=== PATIENT | female | born 1995 | race American Indian/Alaskan Native ===

== ENCOUNTER 2017-05-01 18:59 | Emergency (ER) | payer OTHER, BC ==
[2017-05-01 18:59] VITALS: BMI 52.4
[2017-05-01 19:11] VITALS: RESP 20; TEMP 98.3
[2017-05-01] MEDS ORDERED: Sodium Chloride 0.9% 1,000 ML IV ONE (19:53)
[2017-05-01 20:15] LABS: BASO % 0.7 % (0.0-2.0); EOS % 0.7 % (0.0-4.0); HEMOGLOBIN 11.6 g/dL (11.0-16.0); LYMPH # 1.3 K/uL (1.0-4.3); LYMPH % 19.4 % (20.0-40.0); MEAN CELL VOLUME 86.5 fL (81.0-99.0); MEAN CORPUSCULAR HEMOGLOBIN 29.3 pg (27.0-31.0); MEAN CORPUSCULAR HGB CONC 33.9 g/dL (33.0-37.0); MEAN PLATELET VOLUME 8.2 fL (7.2-11.7); MONO # 0.4 K/uL (0.0-0.8); MONO % 5.8 % (0.0-10.0); NEUT # 4.9 K/uL (1.8-7.0); NEUT % 73.4 % (50.0-75.0); RBC 3.94 Mil/uL (3.80-5.20); RED CELL DISTRIBUTION WIDTH 13.8 % (11.5-14.5); WHITE BLOOD COUNT 6.7 K/uL (4.8-10.8)
[2017-05-01] MEDS ORDERED: Sodium Chloride 0.9% 1,000 ML ONE (20:28)
[2017-05-01 20:35] LABS: ALBUMIN 3.8 g/dL (3.5-5.0); ALT/SGPT 19 U/L (9-52); AST/SGOT 25 U/L (14-36); BLOOD UREA NITROGEN 10 mg/dL (7-17); CALCIUM 8.3 mg/dl (8.6-10.4); GFR AFRICAN-AMERICAN > 60; GFR NON-AFRICAN AMERICAN > 60
[2017-05-01 21:09] VITALS: BP 148/80; PULSE 95
[2017-05-01 21:13] VITALS: O2SAT 98
[2017-05-01] MEDS ORDERED: Enoxaparin 40 mg Syringe SC STA (21:13)
--- NOTE | 2017-05-01 21:13 | C.PDOC ---
History Of Present Illness 21 yo female came in c/o right leg pain since last night. 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 Pt was evaluated by Gabrielle LAZAR at the time, XR preformed and found to be negative. Pt notes pain persists, it feels "tight". Took Naproxen this morning for the pain. No change in sensation. No swelling. (-) travel (-) SOB (+) Time Seen by Provider: 05/01/17 19:05 Chief Complaint (Nursing): Lower Extremity Problem/Injury History Per: Patient History/Exam Limitations: no limitations Onset/Duration Of Symptoms: Hrs (230 am ) Current Symptoms Are (Timing): Still Present Past Medical History Vital Signs: Last Vital Signs Temp 98.3 F 05/01/17 21:09 Pulse 95 H 05/01/17 21:09 Resp 20 05/01/17 21:09 BP 148/80 05/01/17 21:09 Pulse Ox 98 05/01/17 21:16 - Medical History PMH: Asthma Family History: States: Unknown Family Hx - Social History Hx Alcohol Use: No Hx Substance Use: No Review Of Systems Except As Marked, All Systems Reviewed And Found Negative. Constitutional: Negative for: Fever Neurological: Negative for: Weakness, Numbness Physical Exam - Physical Exam Appears: Well, Non-toxic, No Acute Distress, Other (obese) Skin: Normal Color, Warm, Dry Head: Atraumatic, Normacephalic Eye(s): bilateral: Normal Inspection, EOMI Nose: Normal Oral Mucosa: Moist Neck: Normal, Normal ROM, Supple Chest: Symmetrical Cardiovascular: Rhythm Regular Respiratory: Normal Breath Sounds Back: Normal Inspection Extremity: Normal ROM, Tenderness (Posterior proximal lower leg), No Pedal Edema , Calf Tenderness, No Swelling Pulses: Left Dorsalis Pedis: Normal, Right Dorsalis Pedis: Normal Neurological/Psych: Oriented x3, Normal Motor, Normal Sensation ED Course And Treatment - Laboratory Results Result Diagrams: 05/01/17 20:12 05/01/17 20:12 O2 Sat by Pulse Oximetry: 98 Progress Note: Pt has lower leg pain, is on control and HR is in 120s. Vascular study unable to be preformed. DDimer ordered and Lovenox. Instructed to return tomorrow for doppler. Pt denies SOB, chest pain, or dyspnea. pulse ox WNL. Pt was offered crutches, notes she has it at home. Jakob wrap is on the knee. Disposition - Disposition Disposition: HOME/ ROUTINE Disposition Time: 21:15 Condition: STABLE Additional Instructions: Return tomorrow for vascular study on your leg. Instructions: Leg Sprain (ED) Forms: [facility] (Marshallese), Work Excuse - Clinical Impression Clinical Impression: Leg sprain
[2017-05-01] MEDS ORDERED: Enoxaparin 30 mg Syringe ONE (21:37)
[2017-05-01] MEDS ORDERED: Enoxaparin 100 mg Syringe ONE (21:37)
== END 2017-05-01 21:51 | disposition home or self-care (01) ==
LOC: C.ER 18:59
DX: S83.91XA Sprain of unspecified site of right knee, initial encounter (principal); W19.XXXA Unspecified fall, initial encounter
CPT/HCPCS: 80053; 85025; 85378; 96360; 96372; 99283; J1650; J7040

== ENCOUNTER 2017-05-02 11:14 | Emergency (ER) | payer OTHER, BC ==
[2017-05-02 11:22] VITALS: BP 140/92; PULSE 100; RESP 20; TEMP 97.9; O2SAT 99
--- NOTE | 2017-05-02 11:52 | C.PDOC ---
History Of Present Illness 21 yo female came in c/o right leg pain since yesterday at 2am s/p her "leg giving out " and she fell on it. She was evaluated at [facility] at the time and negative XR and instructed to come in today for Doppler. Notes "its not pain, its "tight". No change in sensation. No swelling. Time Seen by Provider: 05/02/17 11:15 Chief Complaint (Nursing): Lower Extremity Problem/Injury History Per: Patient History/Exam Limitations: no limitations Onset/Duration Of Symptoms: Days (yesterday) Current Symptoms Are (Timing): Still Present Past Medical History Vital Signs: Last Vital Signs Temp 97.9 F 05/02/17 11:21 Pulse 100 H 05/02/17 11:21 Resp 20 05/02/17 11:21 BP 140/92 H 05/02/17 11:21 Pulse Ox 99 05/02/17 12:12 - Medical History PMH: Asthma Family History: States: Unknown Family Hx - Social History Hx Alcohol Use: No Hx Substance Use: No Review Of Systems Except As Marked, All Systems Reviewed And Found Negative. Musculoskeletal: Positive for: Leg Pain Physical Exam - Physical Exam Appears: Well, Non-toxic, No Acute Distress Skin: Normal Color, Warm, Dry Head: Atraumatic, Normacephalic Eye(s): bilateral: Normal Inspection, EOMI Nose: Normal Oral Mucosa: Moist Neck: Normal, Normal ROM, Supple Chest: Symmetrical Respiratory: No Accessory Muscle Use Back: Normal Inspection Extremity: Normal ROM, Tenderness (tenderness to the back of the right leg), No Swelling Pulses: Left Dorsalis Pedis: Normal, Right Dorsalis Pedis: Normal Neurological/Psych: Oriented x3, Normal Speech, Normal Motor, Normal Sensation ED Course And Treatment O2 Sat by Pulse Oximetry: 99 Progress Note: Vascular Dopppler NEgative as read by information tech. Pt was instructed RICE and follow up with ortho in 1-2 days. Disposition - Disposition Disposition: HOME/ ROUTINE Disposition Time: 11:56 Condition: STABLE Additional Instructions: Rest, ice and elevate the area. Follow up with your PMD in1-2 days. Prescriptions: Cyclobenzaprine [Cyclobenzaprine HCl] 10 mg PO TID #20 tab Instructions: Leg Sprain (ED) Forms: [facility] (Sri Lankan) - Clinical Impression Clinical Impression: Leg sprain
--- NOTE | 2017-05-04 09:46 | VASCLAB ---
PROCEDURE: Right Lower Extremity Venous Duplex Exam. HISTORY: Pain PRIORS: None. TECHNIQUE: Right common femoral, femoral, popliteal and posterior tibial, peroneal and great saphenous veins were evaluated. Flow was assessed with color Doppler, compressibility, assessment of phasic flow and augmentation response. Report prepared by ALONSO De La Cruz FINDINGS: RIGHT: 1. Common Femoral Vein: 1.1. Compressibility - Fully compressible: Thrombus - None: Flow - Phasic: Augmentation -Normal: Reflux - None. 2. Femoral Vein: 2.1. Compressibility - Fully compressible: Thrombus - None: Flow - Phasic: Augmentation -Normal: Reflux - None. 3. Popliteal Vein: 3.1. Compressibility - Fully compressible: Thrombus - None: Flow - Phasic: Augmentation -Normal: Reflux - None. 4. Posterior Tibial Vein: 4.1. Compressibility - Fully compressible: Thrombus - None: Flow - Phasic: Augmentation -Normal: Reflux - None. 5. Peroneal Vein: 5.1. Compressibility - Fully compressible: Thrombus - None: Flow - Phasic: Augmentation -Normal: Reflux - None. 6. Great Saphenous Vein: 6.1. Compressibility - Fully compressible: Thrombus -None: Flow - Phasic: Augmentation - Normal: Reflux - None. OTHER FINDINGS: IMPRESSION: No evidence of deep or superficial vein thrombosis of the right lower extremity with excellent venous flow. Normal valve function noted of the right side. Normal venous flow noted in the left common femoral vein.
== END 2017-05-02 12:06 | disposition home or self-care (01) ==
LOC: C.ER 11:14
DX: T14.8XXD Other injury of unspecified body region, subsequent encounter (principal); W18.30XD Fall on same level, unspecified, subsequent encounter

== ENCOUNTER 2017-05-12 16:29 | Emergency (ER) | payer OTHER, BC ==
[2017-05-12 16:31] VITALS: BP 139/77; PULSE 93; RESP 20; TEMP 98.5; O2SAT 98
--- NOTE | 2017-05-12 16:52 | C.PDOC ---
History Of Present Illness 21-year-old female, presents to the emergency department with complaints knee pain for the past 1.5 weeks since she fell from the ambulance and struck knee. Patient was seen at that time and had a negative x-ray. She is taking Tramadol, Flexeril, and anti-inflammatory medication but pain persists. States that today , it gave out while at work and fell on it. Denies numbness/weakness, nausea/ vomiting, or any other associated symptoms. No other complaints at this time. Time Seen by Provider: 05/12/17 16:38 Chief Complaint (Nursing): Lower Extremity Problem/Injury History Per: Patient History/Exam Limitations: no limitations Past Medical History Reviewed: Historical Data, Nursing Documentation, Vital Signs Vital Signs: Last Vital Signs Temp 98.5 F 05/12/17 16:30 Pulse 93 H 05/12/17 16:30 Resp 20 05/12/17 16:30 BP 139/77 05/12/17 16:30 Pulse Ox 98 05/12/17 17:36 - Medical History PMH: Asthma Family History: States: No Known Family Hx - Social History Hx Alcohol Use: No Hx Substance Use: No Review Of Systems Constitutional: Negative for: Fever Musculoskeletal: Positive for: Other (Knee pain) Neurological: Negative for: Weakness, Numbness Physical Exam - Physical Exam Appears: Non-toxic, No Acute Distress Skin: Warm, Dry, No Rash Extremity: Normal ROM, Tenderness (Right knee, interiorly), Capillary Refill (< 2 seconds), No Deformity, No Swelling (no redness) Pulses: Left Dorsalis Pedis: Normal, Right Dorsalis Pedis: Normal ED Course And Treatment O2 Sat by Pulse Oximetry: 98 Medical Decision Making Medical Decision Making: right knee xr- no acute fracture Disposition - Disposition Referrals: Adrianna Painting MD [Staff Provider] - Disposition: HOME/ ROUTINE Disposition Time: 17:35 Condition: STABLE Additional Instructions: Please follow up with the orthopedic doctor. Return to the ER for any worsening symptoms or for any other concerns. Forms: General Discharge Instructions, [facility] (Latvian), Work Excuse - Clinical Impression Clinical Impression: Knee contusion - Scribe Statement The provider has reviewed the documentation as recorded by the Scribe (Garret Lomeli) All medical record entries made by the Scribe were at my direction and personally dictated by me. I have reviewed the chart and agree that the record accurately reflects my personal performance of the history, physical exam, medical decision making, and the department course for this patient. I have also personally directed, reviewed, and agree with the discharge instructions and disposition.
--- NOTE | 2017-05-13 08:50 | RAD ---
PROCEDURE: Right Knee Radiographs. HISTORY: fall pain COMPARISON: None. FINDINGS: BONES: No acute fracture. JOINTS: Unremarkable. JOINT EFFUSION: None. OTHER FINDINGS: None. IMPRESSION: No demonstrated fracture or dislocation.
== END 2017-05-12 17:48 | disposition home or self-care (01) ==
LOC: C.ER 16:29
DX: S80.01XA Contusion of right knee, initial encounter (principal); W18.30XA Fall on same level, unspecified, initial encounter; Y92.89 Other specified places as the place of occurrence of the external cause; Y99.8 Other external cause status
CPT/HCPCS: 73562; 96372; 99283; J1885

== ENCOUNTER 2018-01-08 19:08 | Emergency (ER) | payer OTHER, BC ==
[2018-01-08 19:22] VITALS: BP 130/84; PULSE 107; RESP 20; TEMP 98.8
[2018-01-08 20:44] VITALS: O2SAT 99
--- NOTE | 2018-01-08 20:57 | C.PDOC ---
History Of Present Illness 22-year-old female, presents to the emergency department with complaints of headache, sore throat, cough with yellow sputum and nasal congestion ongoing for the past three days. Patient denies fever, nausea/vomiting, or any other associated symptoms. No other complaints at this time. Time Seen by Provider: 01/08/18 20:34 Chief Complaint (Nursing): Cough, Cold, Congestion History Per: Patient History/Exam Limitations: no limitations Onset/Duration Of Symptoms: Days Current Symptoms Are (Timing): Still Present Past Medical History Reviewed: Historical Data, Nursing Documentation, Vital Signs Vital Signs: Last Vital Signs Temp 98.8 F 01/08/18 19:15 Pulse 107 H 01/08/18 19:15 Resp 20 01/08/18 19:15 BP 130/84 01/08/18 19:15 Pulse Ox 99 01/08/18 21:21 - Medical History PMH: Anemia, Asthma Family History: States: No Known Family Hx - Social History Hx Alcohol Use: No Hx Substance Use: No - Immunization History Hx Tetanus Toxoid Vaccination: Yes Hx Influenza Vaccination: Yes (2017) Hx Pneumococcal Vaccination: No Review Of Systems Constitutional: Negative for: Fever ENT: Positive for: Nose Discharge, Throat Pain Respiratory: Positive for: Cough, Sputum Neurological: Positive for: Headache Physical Exam - Physical Exam Appears: Non-toxic, No Acute Distress Skin: Warm, Dry, No Rash Head: Atraumatic, Normacephalic Eye(s): bilateral: Normal Inspection, PERRL, EOMI Ear(s): Bilateral: Normal Nose: Normal Oral Mucosa: Moist Lips: Normal Appearing Throat: Erythema, Exudate, No Drooling, No Mass Neck: Normal ROM, Supple Cardiovascular: Rhythm Regular, No Murmur Respiratory: Normal Breath Sounds, No Accessory Muscle Use Extremity: Normal ROM, No Deformity Neurological/Psych: Oriented x3, Normal Speech, Normal Cognition ED Course And Treatment O2 Sat by Pulse Oximetry: 99 Pulse Ox Interpretation: Normal (RA) Medical Decision Making Medical Decision Making: Plan: * Motrin, Amoxicillin * Reassess and Disposition Disposition - Disposition Referrals: Kevon Jorge MD [Medical Doctor] - Disposition: HOME/ ROUTINE Disposition Time: 20:54 Condition: STABLE Additional Instructions: Follow up within 1-2 days. Return to ED if feel worse. Prescriptions: Amoxicillin 500 mg PO Q8 #30 tab Brompheniramine/Pseudoephed/Dm [Bromfed Dm Cough 118 ml] 10 ml PO Q4 #300 ml Fluticasone Nasal [Flonase] 1 spr NS BID #1 spr Ibuprofen [Motrin Tab] 600 mg PO Q8 #30 tab Instructions: Sore Throat in Adults, Upper Respiratory Infection (ED) Forms: [facility] (Uzbek), Work Excuse - Clinical Impression Clinical Impression: Pharyngitis, Upper respiratory infection - Scribe Statement The provider has reviewed the documentation as recorded by the Scribe (Garret Katz) All medical record entries made by the Scribe were at my direction and personally dictated by me. I have reviewed the chart and agree that the record accurately reflects my personal performance of the history, physical exam, medical decision making, and the department course for this patient. I have also personally directed, reviewed, and agree with the discharge instructions and disposition.
== END 2018-01-08 21:05 | disposition home or self-care (01) ==
LOC: C.ER 19:08
DX: J02.9 Acute pharyngitis, unspecified (principal)

== ENCOUNTER 2018-05-17 19:53 | Emergency (ER) | payer BC ==
[2018-05-17] MEDS ORDERED: Sodium Chloride 0.9% 1,000 ML IV ONE (20:44)
[2018-05-17 21:06] LABS: BASO % 0.3 % (0.0-2.0); EOS # 0.1 K/uL (0.0-0.7); EOS % 0.5 % (0.0-4.0); HEMOGLOBIN 11.5 g/dL (11.0-16.0); LYMPH # 2.7 K/uL (1.0-4.3); MEAN CELL VOLUME 90.5 fL (81.0-99.0); MEAN CORPUSCULAR HEMOGLOBIN 29.4 pg (27.0-31.0); MEAN CORPUSCULAR HGB CONC 32.4 g/dL (33.0-37.0); MEAN PLATELET VOLUME 9.6 fL (7.2-11.7); MONO # 0.7 K/uL (0.0-0.8); MONO % 7.3 % (0.0-10.0); NEUT # 6.7 K/uL (1.8-7.0); NEUT % 65.9 % (50.0-75.0); RBC 3.91 Mil/uL (3.80-5.20); RED CELL DISTRIBUTION WIDTH 14.9 % (11.5-14.5); WHITE BLOOD COUNT 10.2 K/uL (4.8-10.8)
[2018-05-17 21:25] LABS: ALB/GLOB RATIO 1.4 (1.0-2.1); ALBUMIN 4.4 g/dL (3.5-5.0); ALT/SGPT 32 U/L (9-52); AST/SGOT 29 U/L (14-36); BLOOD UREA NITROGEN 6 mg/dL (7-17); CALCIUM 8.9 mg/dl (8.6-10.4); GFR NON-AFRICAN AMERICAN > 60; LIPASE 71 U/L (23-300)
[2018-05-17 21:31] LABS: SQUAMOUS EPITHIAL 29 /hpf (0-5); URINE BACTERIA RARE (<OCC); URINE BILIRUBIN 1+ (NEGATIVE); URINE BLOOD NEGATIVE (NEGATIVE); URINE CLARITY Hazy (Clear); URINE COLOR Amber (YELLOW); URINE GLUCOSE (UA) NORMAL (Normal); URINE LEUKOCYTE ESTERASE TRACE Leu/uL (Negative); URINE PROTEIN 1+ mg/dL (NEGATIVE)
--- NOTE | 2018-05-17 21:58 | C.PDOC ---
History Of Present Illness 22 year old female, whose past medical history includes gastric sleeve in February 2018, presents to the ED for evaluation of nausea and vomiting which began 3 days ago. Patient reports vomiting after eating, headache and dizziness. She denies bowel movements, fever, chills. <Deann Aguilar - Last Filed: 05/17/18 22:53> History Per: Patient History/Exam Limitations: no limitations Onset/Duration Of Symptoms: Days (3) Current Symptoms Are (Timing): Still Present Quality Of Discomfort: "Pain" Associated Symptoms: Nausea, Vomiting. denies: Fever Additional History Per: Patient Abnormal Vaginal Bleeding: No <Deann Aguilar - Last Filed: 05/17/18 22:53> <Carito Fitzgerald - Last Filed: 05/18/18 01:06> Time Seen by Provider: 05/17/18 20:27 Chief Complaint (Nursing): GI Problem Past Medical History Reviewed: Historical Data, Nursing Documentation, Vital Signs Vital Signs: Last Vital Signs Temp 98.4 F 05/17/18 20:11 Pulse 89 05/17/18 20:11 Resp 22 05/17/18 20:11 BP 111/76 05/17/18 20:11 Pulse Ox 100 05/17/18 20:11 - Medical History PMH: Anemia, Asthma Denies: Chronic Kidney Disease Surgical History: No Surg Hx Family History: States: Unknown Family Hx - Social History Hx Alcohol Use: No Hx Substance Use: No - Immunization History Hx Tetanus Toxoid Vaccination: Yes Hx Influenza Vaccination: Yes (2016) Hx Pneumococcal Vaccination: No <Deann Aguilar - Last Filed: 05/17/18 22:53> Vital Signs: Last Vital Signs Temp 98.4 F 05/17/18 20:11 Pulse 89 05/17/18 20:11 Resp 22 05/17/18 20:11 BP 111/76 05/17/18 20:11 Pulse Ox 100 05/17/18 22:57 <Carito Fitzgerald - Last Filed: 05/18/18 01:06> Review Of Systems Gastrointestinal: Positive for: Nausea, Vomiting Neurological: Negative for: Headache, Dizziness <Deann Aguilar - Last Filed: 05/17/18 22:53> Physical Exam - Physical Exam Appears: Non-toxic, No Acute Distress Skin: Normal Color, Warm, Dry Head: Atraumatic, Normacephalic Eye(s): bilateral: Normal Inspection Oral Mucosa: Dry Neck: Supple Chest: Symmetrical, No Deformity, No Tenderness Cardiovascular: Rhythm Regular, No Murmur Respiratory: Normal Breath Sounds, No Rales, No Rhonchi, No Wheezing Gastrointestinal/Abdominal: Soft, Tenderness (mild, epigastric ), No Guarding, No Rebound Extremity: Normal ROM, Capillary Refill (less than 2 seconds ) Neurological/Psych: Oriented x3, Normal Speech, Normal Cognition <Deann Aguilar - Last Filed: 05/17/18 22:53> ED Course And Treatment - Laboratory Results Result Diagrams: 05/17/18 21:03 05/17/18 21:03 Lab Results: Total Bilirubin 0.6 mg/dL (0.2-1.3) 05/17/18 21:03 AST 29 U/L (14-36) 05/17/18 21:03 ALT 32 U/L (9-52) 05/17/18 21:03 Alkaline Phosphatase 57 U/L (38-126) 05/17/18 21:03 Total Protein 7.5 g/dL (6.3-8.3) 05/17/18 21:03 Albumin 4.4 g/dL (3.5-5.0) 05/17/18 21:03 Globulin 3.2 gm/dL (2.2-3.9) 05/17/18 21:03 Albumin/Globulin Ratio 1.4 (1.0-2.1) 05/17/18 21:03 Lipase 71 U/L (23-300) 05/17/18 21:03 Urine Color Fadumo (YELLOW) 05/17/18 20:53 Urine Clarity Hazy (Clear) 05/17/18 20:53 Urine pH 5.0 (5.0-8.0) 05/17/18 20:53 Ur Specific [place] 1.031 (1.003-1.030) H 05/17/18 20:53 Urine Protein 1+ mg/dL (NEGATIVE) H 05/17/18 20:53 Urine Glucose (UA) Normal mg/dL (Normal) 05/17/18 20:53 Urine Ketones Trace mg/dL (NEGATIVE) 05/17/18 20:53 Urine Blood Negative (NEGATIVE) 05/17/18 20:53 Urine Nitrate Negative (NEGATIVE) 05/17/18 20:53 Urine Bilirubin 1+ (NEGATIVE) H 05/17/18 20:53 Urine Urobilinogen 4.0 mg/dL (0.2-1.0) H 05/17/18 20:53 Ur Leukocyte Esterase Trace Matthias/uL (Negative) 05/17/18 20:53 Urine WBC (Auto) 3 /hpf (0-5) 05/17/18 20:53 Urine RBC (Auto) 1 /hpf (0-3) 05/17/18 20:53 Ur Squamous Epith Cells 29 /hpf (0-5) H 05/17/18 20:53 Urine Bacteria Rare (<OCC) 05/17/18 20:53 O2 Sat by Pulse Oximetry: 100 (on RA) Pulse Ox Interpretation: Normal <Deann Aguilar - Last Filed: 05/17/18 22:53> - Laboratory Results Result Diagrams: 05/17/18 21:03 05/17/18 21:03 Lab Results: Total Bilirubin 0.6 mg/dL (0.2-1.3) 05/17/18 21:03 AST 29 U/L (14-36) 05/17/18 21:03 ALT 32 U/L (9-52) 05/17/18 21:03 Alkaline Phosphatase 57 U/L (38-126) 05/17/18 21:03 Total Protein 7.5 g/dL (6.3-8.3) 05/17/18 21:03 Albumin 4.4 g/dL (3.5-5.0) 05/17/18 21:03 Globulin 3.2 gm/dL (2.2-3.9) 05/17/18 21:03 Albumin/Globulin Ratio 1.4 (1.0-2.1) 05/17/18 21:03 Lipase 71 U/L (23-300) 05/17/18 21:03 Urine Color Fadumo (YELLOW) 05/17/18 20:53 Urine Clarity Hazy (Clear) 05/17/18 20:53 Urine pH 5.0 (5.0-8.0) 05/17/18 20:53 Ur Specific [place] 1.031 (1.003-1.030) H 05/17/18 20:53 Urine Protein 1+ mg/dL (NEGATIVE) H 05/17/18 20:53 Urine Glucose (UA) Normal mg/dL (Normal) 05/17/18 20:53 Urine Ketones Trace mg/dL (NEGATIVE) 05/17/18 20:53 Urine Blood Negative (NEGATIVE) 05/17/18 20:53 Urine Nitrate Negative (NEGATIVE) 05/17/18 20:53 Urine Bilirubin 1+ (NEGATIVE) H 05/17/18 20:53 Urine Urobilinogen 4.0 mg/dL (0.2-1.0) H 05/17/18 20:53 Ur Leukocyte Esterase Trace Matthias/uL (Negative) 05/17/18 20:53 Urine WBC (Auto) 3 /hpf (0-5) 05/17/18 20:53 Urine RBC (Auto) 1 /hpf (0-3) 05/17/18 20:53 Ur Squamous Epith Cells 29 /hpf (0-5) H 05/17/18 20:53 Urine Bacteria Rare (<OCC) 05/17/18 20:53 - CT Scan/US CT abd/pelvis Other Rad Studies (CT/US): Read By Radiologist, Radiology Report Reviewed CT/US Interpretation: CT SCAN OF THE ABDOMEN AND PELVIS WITH CONTRAST. CLINICAL HISTORY: Abdominal pain, vomiting. Patient had gastric sleeve 3 months ago. TECHNIQUE: Multiple axial and coronal CT images were obtained through the abdomen and pelvis after administration of intravenous contrast material. COMMENTS: 2.8 cm right ovarian cyst. Prior gastric sleeve surgery. Chronic benign surgical changes of anterior abdominal wall from prior surgical intervention. Mildly prominent lymph nodes in the right lower quadrant with the largest measuring 1.3 cm, probably benign mesenteric adenitis. The liver is of uniform attenuation without mass or defect. There is no intra or extrahepatic biliary ductal dilatation. The spleen is normal. The gallbladder is within normal limits. The pancreas is of normal contour and attenuation characteristics. There is no evidence of adrenal mass. Both kidneys demonstrate prompt and equal nephrograms. The kidneys are normal in size, shape and configuration. There is no evidence of renal or ureteral mass. No renal or ureteral calculi are identified. There is no hydroureter or hydronephrosis. No evidence for appendicitis. There is no bowel wall thickening. No evidence for small or large bowel obstruction. There is no evidence of abdominal ascites or lymphadenopathy. There is no evidence of intrinsic or extrinsic bladder mass. There is no pelvic ascites or lymphadenopathy. Images of the lung bases show no evidence of pleural or parenchymal mass. There are no pleural effusions. The bony structures are free of lytic or blastic lesions. IMPRESSION: 2.8 cm right ovarian cyst. Prior gastric sleeve surgery. Chronic benign surgical changes of anterior abdominal wall from prior surgical intervention. Mildly prominent lymph nodes in the right lower quadrant with the largest measuring 1.3 cm, probably benign mesenteric adenitis. . Electronically signed on May 18, 2018 12:35:45 AM EST by: Cheikh Andersen M.D., Certified by ABR, MSK, Neuroradiology <Carito Fitzgerald - Last Filed: 05/18/18 01:06> Medical Decision Making Medical Decision Making: Progress: Bloodwork and urinalysis ordered and reviewed. Pepcid IVP, Zofran IVP and IV fluids given. ct abdomen with iv contrast only ordered. <Deann Aguilar - Last Filed: 05/17/18 22:53> Disposition - Disposition Disposition Time: 22:55 <Deann Aguilar - Last Filed: 05/17/18 22:53> - POA Present On Arrival: None <Carito Fitzgerald - Last Filed: 05/18/18 01:06> - Disposition Condition: GOOD Additional Instructions: FRANK SUBRAMANIAN, thank you for letting us take care of you today. Your provider was Carito Fitzgerald MD and you were treated for DIZZINESS. The emergency medical care you received today was directed at your acute symptoms. If you were prescribed any medication, please fill it and take as directed. It may take several days for your symptoms to resolve. Return to the Emergency Department if your symptoms worsen, do not improve, or if you have any other problems. Please contact your doctor in 1-2 days for a follow up appointment. Bring any p aperwork you were given at discharge with you along with any medications you are taking to your follow up visit. Our treatment cannot replace ongoing medical care by a primary care provider outside of the emergency department. Thank you for allowing the [facility] team to be part of your care today. If you had an X-Ray or CT scan: A Radiologist will review the ED reading if any change in treatment is needed we will contact you. If you had a blood, urine, or wound culture: It will take several days for the results, if any change in treatment is needed we will contact you. If you had an STI test: It will take 48 hours for the results. Please call after 1 week if you have not heard back. Instructions: Nausea and Vomiting, Adult (DC), Dizziness, Nonvertigo, (DC), Headache, Adult (DC) Forms: [facility] [employer] [facility] (Czech) - Clinical Impression Clinical Impression: Nausea and vomiting, Dizziness, Headache - PA / VALVE SETTER / Resident Statement MD/DO has reviewed & agrees with the documentation as recorded. - Scribe Statement The provider has reviewed the documentation as recorded by the Scribe (lAiya Mendiola) All medical record entries made by the Scribe were at my direction and personally dictated by me. I have reviewed the chart and agree that the record accurately reflects my personal performance of the history, physical exam, medical decision making, and the department course for this patient. I have also personally directed, reviewed, and agree with the discharge instructions and disposition. <Deann Aguilar - Last Filed: 05/17/18 22:53> Physician Patient Turnover Patient Signed Over To: Carito Fitzgerald Handoff Comments: f/u ct scan and dispo accordingly <Deann Aguilar - Last Filed: 05/17/18 22:53>
[2018-05-17] MEDS ORDERED: Iodixanol 320 MG/ML 100 ML BOTTLE IV ONE (22:30)
[2018-05-18 01:30] VITALS: BP 126/67; PULSE 86; RESP 20; TEMP 97.3; O2SAT 99
--- NOTE | 2018-05-18 13:52 | CT ---
Date of service: 05/17/2018 PROCEDURE: CT Abdomen and Pelvis with contrast HISTORY: vomiting s/p gastric sleeve sx COMPARISON: None available. TECHNIQUE: Contrast dose: 100 mL Visipaque 320 IV Radiation dose: Total exam DLP = 1167.07 mGy-cm. This CT exam was performed using one or more of the following dose reduction techniques: Automated exposure control, adjustment of the mA and/or kV according to patient size, and/or use of iterative reconstruction technique. FINDINGS: LOWER THORAX: No visible consolidation, pleural effusion, or pneumothorax. LIVER: Unremarkable. GALLBLADDER AND BILE DUCTS: Unremarkable. PANCREAS: Unremarkable. SPLEEN: Unremarkable. ADRENALS: Unremarkable. KIDNEYS AND URETERS: The kidneys enhance symmetrically. No hydronephrosis or obstructing calculus identified. VASCULATURE: No aortic aneurysm. No atherosclerotic calcification or mural plaque present. BOWEL: Postsurgical gastric changes of an nondistended stomach. Lack of oral contrast limits evaluation for bowel pathology. Bowel loops appear within normal limits of caliber without evidence of obstruction. APPENDIX: The appendix appears within normal limits of caliber. No secondary signs of acute appendicitis. PERITONEUM: No significant free fluid. No definite free air. LYMPH NODES: Prominent mesenteric adenopathy measuring up approximately 1.3 cm in short axis, nonspecific. Sub cm nonspecific retroperitoneal adenopathy. BLADDER: Unremarkable. REPRODUCTIVE: Uterus is present. 2.4 cm probable right ovarian cyst. BONES: No acute osseous abnormality is detected. OTHER FINDINGS: None. IMPRESSION: Prominent mesenteric adenopathy measuring up approximately 1.3 cm in short axis, nonspecific. Correlate clinically for possibility of mesenteric adenitis. The appendix appears within normal limits of caliber. No secondary signs of acute appendicitis. Additional incidental findings as above Preliminary impression was provided by [email or web address].
== END 2018-05-18 01:30 | disposition home or self-care (01) ==
LOC: C.ER 19:53
DX: R11.2 Nausea with vomiting, unspecified (principal); R42 Dizziness and giddiness; R51 Headache
CPT/HCPCS: 74177; 80053; 81001; 81025; 83690; 85025; 96374; 96375; 99285; J2405; J7030; Q9967

== ENCOUNTER 2018-06-24 08:31 | Emergency (ER) | payer OTHER, BC ==
[2018-06-24 08:52] VITALS: BP 122/82; PULSE 100; RESP 18; TEMP 98.2; O2SAT 100
[2018-06-24] MEDS ORDERED: Tdap Vaccine 0.5 ml Vial (10-64 yrs) IM ONE (09:29)
[2018-06-24] MEDS ORDERED: Tetanus/Diphtheria Toxoids 0.5 ml Syringe IM ONE (09:48)
--- NOTE | 2018-06-24 09:54 | C.PDOC ---
History Of Present Illness 22 y/o female, [facility] [employer], presents to the ER for evaluation of needle stick injury to the right index finger. Patient states that she was working with straight catheter and needle when the needle pricked her. Patient reports that she cleaned the area. Denies having fever and chills. Time Seen by Provider: 06/24/18 08:49 Chief Complaint (Nursing): Needle Stick History Per: Patient History/Exam Limitations: no limitations Onset/Duration Of Symptoms: Hrs Current Symptoms Are (Timing): Still Present Severity: Moderate Past Medical History Reviewed: Historical Data, Nursing Documentation, Vital Signs Vital Signs: Last Vital Signs Temp 98.2 F 06/24/18 08:45 Pulse 100 H 06/24/18 08:45 Resp 18 06/24/18 08:45 BP 122/82 06/24/18 08:45 Pulse Ox 100 06/24/18 08:45 - Medical History PMH: Anemia, Asthma Denies: Chronic Kidney Disease Other Surgeries: Hx of surgeries Family History: States: No Known Family Hx - Social History Hx Alcohol Use: No Hx Substance Use: No - Immunization History Hx Tetanus Toxoid Vaccination: Yes Hx Influenza Vaccination: Yes (2017) Hx Pneumococcal Vaccination: No Review Of Systems Except As Marked, All Systems Reviewed And Found Negative. Constitutional: Negative for: Fever, Chills Physical Exam - Physical Exam Appears: Non-toxic, No Acute Distress Skin: Normal Color, Warm, Dry, Other (small puncture wound to right index finger) Head: Atraumatic, Normacephalic Eye(s): bilateral: Normal Inspection Nose: Normal Oral Mucosa: Moist Neck: Supple Chest: Symmetrical Neurological/Psych: Oriented x3, Normal Speech ED Course And Treatment O2 Sat by Pulse Oximetry: 100 (RA) Pulse Ox Interpretation: Normal Medical Decision Making Medical Decision Making: Plan: --Tetanus Vaccination Disposition - Disposition Referrals: [facility] [Outside] Disposition: HOME/ ROUTINE Disposition Time: 09:54 Condition: STABLE Additional Instructions: Return if worsened. 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 - Scribe Statement The provider has reviewed the documentation as recorded by the Jaradibe Nataliia Schmitz Provider Attestation All medical record entries made by the Scribe were at my direction and personally dictated by me. I have reviewed the chart and agree that the record accurately reflects my personal performance of the history, physical exam, medical decision making, and the department course for this patient. I have also personally directed, reviewed, and agree with the discharge instructions and disposition.
== END 2018-06-24 10:08 | disposition home or self-care (01) ==
LOC: C.ER 08:31
DX: S61.230A Puncture wound without foreign body of right index finger without damage to nail, initial encounter (principal); W46.0XXA Contact with hypodermic needle, initial encounter; Y92.239 Unspecified place in hospital as the place of occurrence of the external cause; Y99.0 Civilian activity done for income or pay

== ENCOUNTER 2018-08-12 15:08 | Emergency (ER) | payer OTHER, BC ==
[2018-08-12 15:20] VITALS: BP 118/79; PULSE 85; RESP 20; TEMP 98.6; O2SAT 100
[2018-08-12] MEDS ORDERED: Sodium Chloride 0.9% Inh Soln (3mL) UD INH ONE (15:36)
--- NOTE | 2018-08-12 15:37 | C.PDOC ---
History Of Present Illness 22 y/o female with a PMHx of knee surgery, gastric sleeve in 2016, and acid reflux, presents today complaining of a productive cough, yellow sputum, and nasal congestion for the past 3 days. Associated with chills. Patient denies any fever, nausea, vomiting, or diarrhea. No recent travel. No known sick contacts. Patient notes she has a nasal spray at home that she has tried with minimal relief. Time Seen by Provider: 08/12/18 15:16 Chief Complaint (Nursing): Cough, Cold, Congestion History Per: Patient History/Exam Limitations: no limitations Onset/Duration Of Symptoms: Days Current Symptoms Are (Timing): Still Present Associated Symptoms: Chills, Cough, Sputum, Nasal Congestion Past Medical History Reviewed: Historical Data, Nursing Documentation, Vital Signs Vital Signs: Last Vital Signs Temp 98.6 F 08/12/18 15:15 Pulse 85 08/12/18 15:15 Resp 20 08/12/18 15:15 BP 118/79 08/12/18 15:15 Pulse Ox 100 08/12/18 15:15 - Medical History PMH: Anemia, Asthma Denies: Chronic Kidney Disease Family History: States: Unknown Family Hx - Social History Hx Alcohol Use: No Hx Substance Use: No - Immunization History Hx Tetanus Toxoid Vaccination: Yes Hx Influenza Vaccination: Yes (2017) Hx Pneumococcal Vaccination: No Review Of Systems Except As Marked, All Systems Reviewed And Found Negative. Constitutional: Positive for: Chills. Negative for: Fever ENT: Positive for: Nose Discharge, Nose Congestion Cardiovascular: Negative for: Chest Pain Respiratory: Positive for: Cough, Sputum. Negative for: Shortness of Breath Gastrointestinal: Negative for: Nausea, Vomiting, Diarrhea Neurological: Negative for: Weakness, Dizziness Physical Exam - Physical Exam Appears: Non-toxic, No Acute Distress Skin: Normal Color, Warm, Dry Head: Atraumatic, Normacephalic Eye(s): bilateral: Normal Inspection, PERRL, EOMI Nose: Discharge (+ bilateral congestion) Oral Mucosa: Moist Throat: Normal (Oropharynx is clear), No Erythema, No Exudate Neck: Normal ROM, Supple Cardiovascular: Rhythm Regular, No Murmur Respiratory: Normal Breath Sounds, No Accessory Muscle Use, No Rhonchi, No Wheezing Extremity: Bilateral: Atraumatic, No Pedal Edema, Normal ROM Neurological/Psych: Oriented x3, Normal Speech ED Course And Treatment O2 Sat by Pulse Oximetry: 100 (on RA) Pulse Ox Interpretation: Normal Medical Decision Making Medical Decision Making: Impression: Upper respiratory infection Plan: - 60 mg PO Sudafed - Saline nebulizer treatment On reassessment patient reports improvement in symptoms. Lungs are clear bilaterally. Patient is stable for discharge home. Provided with Rx for Motrin and Sudafed. Disposition Counseled Patient/Family Regarding: Diagnosis, Need For Followup, Rx Given - Disposition Referrals: [facility] [Outside] [facility] [Outside] [facility] [Outside] Disposition: HOME/ ROUTINE Disposition Time: 15:59 Condition: STABLE Prescriptions: Ibuprofen [Motrin] 600 mg PO Q6 #20 tab Pseudoephedrine HCl [Sudafed] 30 mg PO Q8 #10 tablet Instructions: Upper Respiratory Infection (ED) Forms: [facility] (Yakut), Work Excuse - POA Present On Arrival: None - Clinical Impression Clinical Impression: Upper respiratory infection - Scribe Statement The provider has reviewed the documentation as recorded by the Ming Hicks Provider Attestation: All medical record entries made by the Jaradibdudley were at my direction and personally dictated by me. I have reviewed the chart and agree that the record accurately reflects my personal performance of the history, physical exam, medical decision making, and the department course for this patient. I have also personally directed, reviewed, and agree with the discharge instructions and disposition.
== END 2018-08-12 16:07 | disposition home or self-care (01) ==
LOC: C.ER 15:08
DX: J06.9 Acute upper respiratory infection, unspecified (principal)

== ENCOUNTER 2018-08-25 00:05 | Emergency (ER) | payer OTHER, BC ==
[2018-08-25] MEDS ORDERED: Iodixanol 320 MG/ML 100 ML BOTTLE IV ONE (03:52)
[2018-08-25 05:21] VITALS: BMI 39.5
[2018-08-25 06:10] VITALS: BP 102/56; PULSE 85; RESP 18; TEMP 98.6; O2SAT 98
[2018-08-25 07:26] LABS: BASO % 0.2 % (0.0-2.0); EOS % 0.1 % (0.0-4.0); HEMOGLOBIN 10.7 g/dL (11.0-16.0); LYMPH # 1.2 K/uL (1.0-4.3); LYMPH % 12.9 % (20.0-40.0); MEAN CELL VOLUME 88.3 fL (81.0-99.0); MEAN CORPUSCULAR HEMOGLOBIN 29.3 pg (27.0-31.0); MEAN CORPUSCULAR HGB CONC 33.2 g/dL (33.0-37.0); MEAN PLATELET VOLUME 9.2 fL (7.2-11.7); MONO # 0.8 K/uL (0.0-0.8); MONO % 8.7 % (0.0-10.0); NEUT # 7.5 K/uL (1.8-7.0); NEUT % 78.1 % (50.0-75.0); NRBC % 0.2 % (0.0-2.0); RBC 3.66 Mil/uL (3.80-5.20); RED CELL DISTRIBUTION WIDTH 13.7 % (11.5-14.5); WHITE BLOOD COUNT 9.6 K/uL (4.8-10.8)
[2018-08-25 12:15] LABS: ALBUMIN 4.4 g/dL (3.5-5.0); ALT/SGPT 25 U/L (9-52); AST/SGOT 28 U/L (14-36); BLOOD UREA NITROGEN 9 mg/dL (7-17); CALCIUM 9.5 mg/dl (8.6-10.4); GFR NON-AFRICAN AMERICAN > 60
[2018-08-25 12:23] LABS: LIPASE 41 U/L (23-300)
[2018-08-25 12:25] LABS: URINE BILIRUBIN NEGATIVE (NEGATIVE); URINE BLOOD 3+ (NEGATIVE); URINE CLARITY Hazy (Clear); URINE COLOR YELLOW (YELLOW); URINE GLUCOSE (UA) Normal (Normal); URINE PROTEIN 2+ mg/dL (NEGATIVE)
[2018-08-25 12:26] LABS: HCG,QUALITATIVE URINE NEGATIVE (NEGATIVE); SQUAMOUS EPITHIAL 3 /hpf (0-5); URINE LEUKOCYTE ESTERASE 1+ Leu/uL (Negative)
== END 2018-08-25 05:27 | disposition home or self-care (01) ==
LOC: C.ER 00:05
DX: K52.9 Noninfective gastroenteritis and colitis, unspecified (principal); R10.11 Right upper quadrant pain
CPT/HCPCS: 74177; 80053; 81001; 83690; 84703; 85025; 96361; 96374; 96375; 99281; J1885; J7030; Q9967

== ENCOUNTER 2018-08-26 12:35 | Outpatient (CLI) | payer OTHER, BC | END 2018-08-26 12:36 | disposition home or self-care (01) | LOC: C.LAB 12:35 | DX: Z98.84 Bariatric surgery status (principal); E66.01 Morbid (severe) obesity due to excess calories ==